=== PATIENT | female | born 2005 | race Hispanic/Latino ===

== ENCOUNTER 2024-02-14 12:30 | Emergency (ER) | payer OTHER ==
[~2024-02-14] VITALS: Ht 167.6 cm; Wt 52.2 kg
[2024-02-14 12:30] VITALS: TEMP 98.2
[2024-02-14 13:00] VITALS: PULSE 97; RESP 18
[2024-02-14 14:02] VITALS: BP 96/64; PULSE 86; RESP 16; O2SAT 100
== END 2024-02-14 14:00 | disposition home or self-care (01) ==
LOC: ER 12:55
DX: R42 Dizziness and giddiness (principal); K59.00 Constipation, unspecified; R55 Syncope and collapse; R10.30 Lower abdominal pain, unspecified; R53.1 Weakness
CPT/HCPCS: 93005; 99282